=== PATIENT | male | born 1990 | race Hispanic/Latino ===

== ENCOUNTER 2019-03-11 08:09 | Day surgery (SDC) | payer OTHER ==
[~2019-03-11 08:09] MED LIST: SODIUM CHLORIDE 0.9% 1000 ML 1,000 ML IV SCH
[2019-03-11] MEDS ORDERED: LIDOCAINE MPF (2%) 20 MG/1 ML VIAL 5 ML ONE (08:30)
--- NOTE | 2019-03-11 09:23 | Anesthesia Day of Surgery ---
Anesthesia Day of Surgery - Day of Surgery Patient Examined: Yes Patient H&P Reviewed: Yes Patient is NPO: Yes
--- NOTE | 2019-03-11 09:35 | Anesthesia Consultation ---
Anesthesia Consult and Med Hx Date of service: 03/11/19 - Airway Anesthetic Teeth Evaluation: Good, Crowns, Bridges ROM Head & Neck: Adequate (S/P Neck Surgery for HNP) Mental/Hyoid Distance: Adequate Mallampati Class: Class II Intubation Access Assessment: Good - Pre-Operative Health Status ASA Pre-Surgery Classification: ASA2 Proposed Anesthetic Plan: MAC - Pulmonary Hx Smoking: Yes Hx Asthma: Yes - Central Nervous System Hx Neuromuscular Disorder: Yes (Migraines) Hx Seizures: Yes (2017 from flashing lights) Hx Psychiatric Problems: Yes (Anxiety/Depression) - Gastrointestinal Hx Ulcer: Yes Hx Gastroesophageal Reflux Disease: Yes - Other Systems Hx Substance Use: Yes (MJ)
[2019-03-11] MEDS ORDERED: PROPOFOL 200 MG/20 ML VIAL IV ONE ×3 (10:18→10:31)
--- NOTE | 2019-03-11 10:40 | Short Stay Summary ---
Short Stay Documentation Date of service: 03/11/19 Narrative H&P: The patient presents today for diagnostic EGD and colonoscopy for symptoms of n/v, abdominal pain, constipation and diarrhea. He has a history of PUD. Most of his current pain is in the RLQ for the past 5 months. - History Past Medical History: seizures, other (depression, insomnia) Past Surgical History: No surgical history Social history: no significant social history, smoking - Allergies and Medications Current Medications: Allergies Penicillins Allergy (Verified 03/10/19 15:44) Unknown ragweed pollen Allergy (Verified 03/10/19 15:44) Unknown Home Medications Medication Instructions Recorded Confirmed Last Taken Type Ondansetron 4 mg PO PRN PRN 03/10/19 03/11/19 03/04/19 08:00 History SUMAtriptan 25 mg IN PRN PRN 03/10/19 03/11/19 10/29/18 12:00 History traZODone 100 mg PO PRN PRN MDD 200 03/10/19 03/11/19 03/10/19 20:00 History ALBUTEROL NEB's [Proventil 0.083% 2.5 mg IH PRN 03/11/19 03/11/19 03/13/16 12:00 History NEBS] Active Medications Sodium Chloride (Nacl 0.9% 1000 Ml) 1,000 mls @ 50 mls/hr IV DIRECT AMIE Last Admin: 03/11/19 09:00 Dose: 50 mls/hr Documented by: - Physical exam General appearance: no acute distress, well-nourished Integumentary: no rash, no growths, no abnormal pigmentation HEENT: Atraumatic, PERRLA, EOMI, Mucous membr. moist/pink Lungs: Clear to auscultation, Normal air movement Breasts: deferred Heart: Regular rate, Normal S1, Normal S2, No murmurs Gastrointestinal: normoactive bowel sounds, no tenderness, no distended, no masses, no guarding Male Genitourinary: deferred Rectal Exam: normal exam-external/orifice Extremities: no ischemia, pulses intact, pulses symmetrical, No edema, normal temperature, normal color, Full ROM Neurological: Normal gait, Normal speech, Strength at 5/5 X4 ext, Normal tone, Sensation intact, Cranial nerves 3-12 NL - Brief post op/procedure progress note Date of procedure: 03/11/19 Findings: see dictated reports Estimated blood loss: none Pathology: list (antral biopsies for h.pylori) Specimen disposition: to lab Condition: stable - Disposition Condition at discharge: Good Disposition: DC-[id number] TO HOME OR SELFCARE - Discharge Diagnoses (1) Nausea & vomiting Status: Acute (2) RLQ abdominal pain Status: Acute (3) Constipation Status: Acute (4) Diarrhea Status: Acute Short Stay Discharge Plan Activity: other (no driving for 24 hours) Weight Bearing Status: Full Weight Bearing Diet: regular Follow up with: JYOTHI MERCER MD [Other] - 7 Days
--- NOTE | 2019-03-11 10:49 | Operative Report ---
Operative Report Operative Report: Date of procedure: 03/11/2019 Procedure: Esophagogastroduodenoscopy with biopsies for H. pylori Preprocedure diagnosis: Recurrent nausea, vomiting and abdominal pain Post procedure diagnosis: Medium size hiatus hernia, otherwise normal-appearing upper digestive tract Endoscopist: Dr. Jin Anesthesia: Monitored anesthesia care per anesthesia department Medications: Propofol per anesthesia Estimated blood loss: 0 After careful discussion of the nature and purpose of the procedure as well as details the technique risks benefits and alternatives consent was obtained. The patient was placed in the left lateral decubitus position and medicated per anesthesia. The tip of the Olympus video scope was passed per orum under direct vision into the esophagus and advanced into the stomach and descending duodenum. The descending duodenum the duodenal bulb and pylorus were symmetrical and normal. The scope was withdrawn into the stomach and the stomach then gently insufflated with air. The antrum was normal. I apices were taken in the antrum for H. pylori testing. The stomach was further insufflated and the scope was then retroflexed and partially withdrawn. The cardia, fundus, and body of the stomach were within normal limits and easily distensible.The scope was then withdrawn in the forward position. The esophagogastric junction was at 36 cm. There was a medium size hiatus hernia approximately 2-3 cm in length.. The esophageal body was normal throughout. The procedure was was well tolerated and the patient was observed in recovery. Impressions: Medium size hiatus hernia and a normal appearing upper digestive tract otherwise. Plan: Await results of H. pylori biopsies. The patient call the office in 1 week. Electronically signed: Brian Jin MD
--- NOTE | 2019-03-11 10:51 | Operative Report ---
Operative Report Operative Report: Date of procedure: 03/11/2019 Preprocedure diagnosis: Right lower quadrant pain, altered bowel habits with co nstipation and diarrhea. Post procedure diagnosis: Normal colon and terminal ileum. Procedure: Colonoscopy to the cecum and terminal ileum. Endoscopist: Dr. Jin Anesthesia: Monitored anesthesia care per anesthesia department Estimated blood loss: 0 Medications: Monitored anesthesia care. See separate report by anesthesia for details. After careful discussion of the nature and purpose of the procedure as well as details of the technique risks benefits and alternatives the patient gave consent. Please see recent history and physical from the office. The patient was placed in the left lateral decubitus position and medicated per anesthesia. A rectal exam was performed sphincter tone was normal there were no masses palpable. The Olympus colonoscope was passed transanally and advanced under continuous direct vision without difficulty to the cecum. The colon was well prepared. The cecum was normal. The ileocecal valve appeared normal. The scope was advanced to the valve and into the distal 10 cm of terminal ileum which appeared completely normal. The ascending colon was normal and on forward and retroflexed views. The transverse colon, descending colon, and sigmoid colon were normal. The rectum was normal on forward and retroflexed views. The procedure was well-tolerated overall and the patient was observed in recovery. Conclusions: Normal colonoscopy to the cecum and terminal ileum. No evidence of inflammatory bowel disease on the study. Plan: Office follow-up in a few weeks. Signed electronically: Brian Jin M.D.
[2019-03-11 11:22] VITALS: BP 128/78
--- NOTE | 2019-03-11 13:53 | Post Anesthesia Evaluation ---
- Post Anesthesia Evaluation Patient Participated: Yes Airway Patent: Yes Stable Respiratory Function: Yes Nausea/Vomiting: Yes Temp > 96.8F: No Pain Manageable: Yes Adequeate Hydration: Yes Anesthesia Complications: No Block Receding Appropriately: Not Applicable Patient on Ventilator: No
== END 2019-03-11 08:10 | disposition home or self-care (01) ==
LOC: GIO 08:09
PROVIDERS: ATTEND Internal Medicine Gastroenterology
DX: K59.00 Constipation, unspecified (principal); R11.2 Nausea with vomiting, unspecified; K44.9 Diaphragmatic hernia without obstruction or gangrene; R19.7 Diarrhea, unspecified; R10.31 Right lower quadrant pain; F17.210 Nicotine dependence, cigarettes, uncomplicated; G43.909 Migraine, unspecified, not intractable, without status migrainosus; K21.9 Gastro-esophageal reflux disease without esophagitis; F41.9 Anxiety disorder, unspecified; F32.9 Major depressive disorder, single episode, unspecified; Z79.899 Other long term (current) drug therapy; Z88.0 Allergy status to penicillin; Z88.8 Allergy status to other drugs, medicaments and biological substances; Z98.890 Other specified postprocedural states
CPT/HCPCS: 43239; 45378; 88305; 88342; J2704; J7030